=== PATIENT | male | born 1980 | race African-American/Black ===

== ENCOUNTER 2018-05-31 02:11 | Inpatient (IN) | payer MEDICARE, MEDICAID ==
[~2018-05-31] VITALS: Ht 188 cm; Wt 84.4 kg
[2018-05-31] MEDS ORDERED: ZOLPIDEM TARTRATE 10 MG TABLET PO PRN (02:45)
[2018-05-31] MEDS ORDERED: QUEtiapine FUMARATE 100 MG TABLET PO PRN (02:45)
[2018-05-31] MEDS ORDERED: LORazepam 2 MG TABLET PO PRN (02:45)
[2018-05-31 04:12] VITALS: BP 132/81
[2018-05-31] MEDS ORDERED: MAG HYDROX/AL HYDROX/SIMETH ES 30 ML SUSPENSION UDCUP PO PRN (06:45)
[2018-05-31] MEDS ORDERED: ALBUTEROL SULFATE HFA 90 MCG/PUFF 8 GM INHALER IH PRN (06:45)
[2018-05-31] MEDS ORDERED: IBUPROFEN 400 MG TABLET PO PRN (06:45)
[2018-05-31] MEDS ORDERED: PETROLATUM,WHITE 71 GM JELLY TP PRN (06:45)
[2018-05-31] MEDS ORDERED: MAGNESIUM HYDROXIDE SUSPENSION 30 ML UDCUP PO PRN (06:45)
[2018-05-31] MEDS ORDERED: DOCUSATE SODIUM 100 MG CAPSULE PO PRN (06:45)
[2018-05-31] MEDS ORDERED: GuaiFENesin/D-METHORPHAN [SUGAR-FREE] 200-20MG/10 ML SYRUP UDCUP PO PRN (06:45)
[2018-05-31] MEDS ORDERED: ACETAMINOPHEN 325 MG TABLET PO PRN (06:45)
[2018-05-31] MEDS ORDERED: LOPERAMIDE HCL 2 MG CAPSULE PO PRN (06:45)
[2018-05-31] MEDS ORDERED: ONDANSETRON HCL 4 MG TABLET PO PRN (06:45)
[2018-05-31] MEDS ORDERED: CloNIDine HCL 0.1 MG TABLET PO PRN (06:45)
[2018-05-31 08:17] VITALS: BP 134/72
[2018-05-31] MEDS ORDERED: HYDR-4031 PO (08:50)
[2018-05-31] MEDS ORDERED: SERT50TA12 PO (08:52)
[2018-05-31] MEDS ORDERED: QUET200T PO (08:54)
[2018-05-31] MEDS ORDERED: GABA-529 PO (08:54)
[2018-05-31 16:14] VITALS: BP 120/69
[2018-05-31] MEDS: QUEtiapine FUMARATE 300 MG TABLET PO SCH (20:13)
[2018-06-01] MEDS: FLUoxetine HCL 20 MG CAPSULE PO SCH (08:21)
[2018-06-01 08:41] LABS: BASOPHILS % (AUTO) 0.7 % (0.0-2.0); EOSINOPHILS % (AUTO) 5.5 % (1.0-6.0); HEMATOCRIT 45.5 % (41-53); HEMOGLOBIN 15.4 g/dL (13.5-17.5); LYMPHOCYTES # (AUTO) 2.3 K/uL (1.0-4.8); LYMPHOCYTES % (AUTO) 40.9 % (22.0-44.0); MEAN CORPUSCULAR HEMOGLOBIN 28.2 pg (26.0-34.0); MEAN CORPUSCULAR HGB CONC 33.9 G/dL (31.0-37.0); MEAN CORPUSCULAR VOLUME 83 fL (80-100); MONOCYTES # (AUTO) 0.5 K/uL (0.1-1.0); MONOCYTES % (AUTO) 8.6 % (2.0-9.0); NEUTROPHILS # (AUTO) 2.5 K/uL (1.8-7.7); NEUTROPHILS % (AUTO) 44.3 % (40.0-70.0); PLATELET COUNT (AUTO) 244 K/uL (150-450); RED BLOOD CELL COUNT(AUTO) 5.47 MIL/uL (4.50-5.90); RED CELL DISTRIBUTION WIDTH 13.7 % (11.5-14.5)
[2018-06-01 08:54] LABS: HEMOGLOBIN A1C 5.5 % (4.5-6.2)
[2018-06-01 09:17] LABS: ALANINE AMINOTRANSFERASE 30 U/L (12-78); ALBUMIN 3.3 g/dL (3.4-5.0); ALKALINE PHOSPHATASE 53 U/L (46-116); ANION GAP 10 mmol/L (8-16); ASPARTATE AMINOTRANSFERASE 19 U/L (15-37); BILIRUBIN,TOTAL 0.3 mg/dL (0.1-1.0); CALCIUM, TOTAL 8.2 mg/dL (8.8-10.5); CARBON DIOXIDE 24 mmol/L (22-29); CHLORIDE 104 mmol/L (98-107); CREATININE 0.86 mg/dL (0.60-1.30); FREE T4 (FREE THYROXINE) 0.52 ng/dL (0.76-1.46); GLOMERULAR FILTR. RATE CALC > 60 mL/min (>60); GLUCOSE,RANDOM 88 mg/dL (70-110); HDL CHOLESTEROL 42 mg/dL (40-60); SODIUM SERUM 138 mmol/L (136-145); THYROID STIMULATING HORMONE 0.94 uIU/mL (0.36-3.74); TOTAL PROTEIN, SERUM 6.3 g/dL (6.4-8.2); TRIGLYCERIDES 185 mg/dL (15-150); UREA NITROGEN, BLOOD 18 mg/dL (7-18)
[2018-06-01 09:28] LABS: CHOL/HDL RATIO 4.4 (4.2-7.3); CHOLESTEROL 184 mg/dL (131-200); LDL CHOL (CALC.) 105 mg/dL (0-130)
[2018-06-01 16:07] VITALS: BP 110/61
[2018-06-01] MEDS: QUEtiapine FUMARATE 300 MG TABLET PO SCH (20:40)
[2018-06-02 06:28] VITALS: BP 108/70
[2018-06-02 08:22] VITALS: BP 105/65
[2018-06-02] MEDS: FLUoxetine HCL 20 MG CAPSULE PO SCH (08:25)
[2018-06-02 09:28] LABS: AMPHET/METH SCREEN,URINE POSITIVE (NEGATIVE); BARBITURATE SCREEN, URINE NEGATIVE (NEGATIVE); BENZODIAZEPINES SCREEN,URINE NEGATIVE (NEGATIVE); CANNABINOID SCREEN,URINE NEGATIVE (NEGATIVE); COCAINE SCREEN,URINE NEGATIVE (NEGATIVE); METHADONE SCREEN, URINE NEGATIVE (NEGATIVE); OPIATE SCREEN,URINE NEGATIVE (NEGATIVE)
[2018-06-02 09:31] LABS: PHENCYCLIDINE SCREEN,URINE POSITIVE (NEGATIVE)
[2018-06-02 10:05] LABS: BILIRUBIN,URINE NEGATIVE (NEGATIVE); GLUCOSE, URINE (UA) NEGATIVE (NEGATIVE); KETONES,URINE NEGATIVE (NEGATIVE); LEUKOCYTE ESTERASE ,URINE SMALL (NEGATIVE); NITRATE,URINE NEGATIVE (NEGATIVE); OCCULT BLOOD,URINE NEGATIVE (NEGATIVE); PROTEIN,URINE NEGATIVE (NEGATIVE); UROBILINOGEN,URINE 0.2 mg/dL (<=1.0)
[2018-06-02 10:13] LABS: APPEARANCE,URINE HAZY (CLEAR)
[2018-06-02 10:14] LABS: RBC,URINE None Seen /HPF (0-2)
[2018-06-02 10:15] LABS: BACTERIA,URINE Few /HPF (None Seen); SQUAMOUS EPITHELIAL CELL,UR Few /LPF (None Seen)
[2018-06-02 10:17] LABS: CALCIUM OXALATE CRYSTALS,UR Few /LPF (None Seen)
[2018-06-02 10:21] LABS: FINE GRANULAR CASTS,URINE 0-2 /LPF (None Seen)
[2018-06-02 16:12] VITALS: BP 112/78
[2018-06-02] MEDS: QUEtiapine FUMARATE 300 MG TABLET PO SCH (20:36)
[2018-06-03 06:34] VITALS: BP 93/60
[2018-06-03 08:24] VITALS: BP 102/60
[2018-06-03] MEDS: FLUoxetine HCL 20 MG CAPSULE PO SCH (08:30)
[2018-06-03 16:06] VITALS: BP 107/75
[2018-06-03] MEDS: QUEtiapine FUMARATE 300 MG TABLET PO SCH (20:16)
[2018-06-04 06:35] VITALS: BP 116/69
[2018-06-04] MEDS: FLUoxetine HCL 20 MG CAPSULE PO SCH (08:19)
[2018-06-04 08:24] VITALS: BP 110/60
[2018-06-04 16:02] VITALS: BP 105/60
[2018-06-04] MEDS: QUEtiapine FUMARATE 300 MG TABLET PO SCH (20:08)
[2018-06-05 00:43] VITALS: BP 128/78
[2018-06-05] MEDS ORDERED: FLUO-191 PO (02:48)
[2018-06-05] MEDS ORDERED: QUET300T2 PO (02:48)
[2018-06-05] MEDS: FLUoxetine HCL 20 MG CAPSULE PO SCH (08:54)
== END 2018-06-05 09:55 | disposition home or self-care (01) | DRG 885 ==
LOC: B2X 02:46 → EDSTATUS 02:56 → B2X 12:50
DX: F25.1 Schizoaffective disorder, depressive type (principal); R45.851 Suicidal ideations; F33.2 Major depressive disorder, recurrent severe without psychotic features; L03.90 Cellulitis, unspecified; F19.20 Other psychoactive substance dependence, uncomplicated; N39.0 Urinary tract infection, site not specified; F10.10 Alcohol abuse, uncomplicated; F41.9 Anxiety disorder, unspecified; F60.9 Personality disorder, unspecified; F90.9 Attention-deficit hyperactivity disorder, unspecified type; G47.00 Insomnia, unspecified; Z59.0 Homelessness; Z91.19 Patient's noncompliance with other medical treatment and regimen; Z91.5 Personal history of self-harm; Z79.899 Other long term (current) drug therapy
CPT/HCPCS: 80307; 83036; 84439; 84443; 87081; 87086; 99285